=== PATIENT | male | born 1995 | race Two or more races ===

== ENCOUNTER 2021-06-14 23:48 | Emergency (ER) | payer OTHER ==
[~2021-06-14] VITALS: Ht 167.6 cm; Wt 81.6 kg
--- NOTE | 2021-06-15 00:25 | NUR ---
Dr. Carvalho at bedside for MSE.
[2021-06-15] MEDS ORDERED: ONDANSETRON 4 MG/2 ML VIAL IV ONE (00:30)
[2021-06-15] MEDS ORDERED: IV NORMAL SALINE 1000 ML BAG IV ONE (00:30)
[2021-06-15] MEDS ORDERED: KETOROLAC TROMETHAMINE 15 MG INJ IVP ONE (00:30)
[2021-06-15 00:50] LABS: HEMATOCRIT 42.5 % (36.7-47.1); MEAN CORPUSCULAR HEMOGLOBIN 30.6 uug (23.8-33.4); MEAN CORPUSCULAR VOLUME 85.5 fL (73.0-96.2); PLATELET COUNT (AUTO) 298 K/uL (152-348)
[2021-06-15 00:52] LABS: CREATININE 1.2 mg/dL (0.6-1.3)
--- NOTE | 2021-06-15 00:56 | NUR ---
Pt out of ER for CT.
[2021-06-15] MEDS ORDERED: KETOROLAC TROMETHAMINE 15 MG INJ ONE (00:58)
[2021-06-15] MEDS ORDERED: ONDANSETRON 4 MG/2 ML VIAL ONE (00:58)
[2021-06-15 01:07] LABS: BILIRUBIN,DIRECT 0.1 mg/dL (0.0-0.2); BILIRUBIN,TOTAL 0.3 mg/dL (0.2-1.0); TOTAL PROTEIN, SERUM 8.2 g/dL (6.4-8.2)
--- NOTE | 2021-06-15 01:15 | NUR ---
Pt back to ER from CT.
[2021-06-15] MEDS ORDERED: IBUP-1955 PO (01:44)
[2021-06-15] MEDS ORDERED: ONDA4TAB5 PO (01:44)
--- NOTE | 2021-06-15 01:50 | NUR ---
Pt provided urine sample, sent to lab.
--- NOTE | 2021-06-15 02:18 | NUR ---
Patient discharged to home in stable condition. Written and verbal after care instructions given. Patient verbalizes understanding of instructions. Stressed follow up or return to ER for worsening s/s. Pt out of ER with steady gait, no acute signs of distress, VSS, all belongings taken, IV site discontinued, provided with copies of lab and ct results.
[2021-06-15 02:20] VITALS: BP 128/64
[2021-06-15 02:42] LABS: *BILIRUBIN,URIN NEGATIVE (NEGATIVE); *BLOOD, URINE NEGATIVE (NEGATIVE); *CLARITY,URINE CLEAR (CLEAR); *COLOR,URINE YELLOW (YELLOW); *KETONES,URINE NEGATIVE (NEGATIVE); *UROBILINOGEN,URINE 0.2 E.U./dl (NORMAL); LEUKOCYTE ESTERASE ,URINE NEGATIVE (NEGATIVE); NITRITE, URINE NEGATIVE (NEGATIVE); UGLUCOSE NEGATIVE (NEGATIVE)
== END 2021-06-15 02:21 | disposition home or self-care (01) ==
LOC: ER 23:57
DX: R10.32 Left lower quadrant pain (principal)
CPT/HCPCS: 36415; 74176; 80048; 80076; 81003; 83690; 85025; 96361; 96374; 96375; 99284; J1885; J2405; J7030